=== PATIENT | male | born 1970 | race African-American/Black ===

== ENCOUNTER 2024-05-12 18:11 | Emergency (ER) | payer MEDICAID ==
[~2024-05-12] VITALS: Ht 180.3 cm; Wt 95.3 kg
[2024-05-12 18:15] VITALS: O2SAT 97
[2024-05-12] MEDS ORDERED: DOXY100T2 MT (20:01)
[2024-05-12] MEDS: CEFTRIAXONE SODIUM 500MG VIAL IM ONE (20:19)
[2024-05-12] MEDS: LIDOCAINE HCL/PF 1% 10 MG/ML 5ML VIAL INFIL ONE (20:19)
[2024-05-12 20:24] VITALS: BP 109/69; PULSE 72; RESP 16; TEMP 98.1
[2024-05-12 20:56] LABS: CLARITY URINE CLEAR (CLEAR); COLOR URINE YELLOW (YELLOW); GLUCOSE URINE NEGATIVE (NEGATIVE); KETONES URINE NEGATIVE (NEGATIVE); LEUKOCYTE ESTERASE URINE NEGATIVE (NEGATIVE); NITRITE URINE NEGATIVE (NEGATIVE); OCCULT BLOOD URINE NEGATIVE (NEGATIVE); PROTEIN URINE NEGATIVE (NEGATIVE); SPECIFIC GRAVITY URINE 1.006 (1.005-1.030); UROBILINOGEN URINE 0.2 E.U./dL (0.2-1.0)
[2024-05-15 04:10] LABS: CHLAMYDIA TRACHOMATIS NAA Negative (Negative); NEISSERIA GONORRHOEAE NAA Negative (Negative)
== END 2024-05-12 20:26 | disposition home or self-care (01) ==
LOC: ER 18:11
DX: A74.9 Chlamydial infection, unspecified (principal)
CPT/HCPCS: 99283; 86592; 87491; 87591; 81003; 36415; 96372; J0696; J3490

== ENCOUNTER 2025-05-19 01:12 | Emergency (ER) | payer SELFPAY ==
[~2025-05-19] VITALS: Ht 185.4 cm; Wt 107.0 kg
[~2025-05-19 01:12] MED LIST: DOXY100T2 MT
[2025-05-19 01:15] VITALS: O2SAT 100
[2025-05-19 01:44] LABS: BASOPHILS % 1.1 % (0.0-2.0); EOSINOPHILS % 0.2 % (0.0-5.0); HEMATOCRIT. 41.4 % (42.0-52.0); HEMOGLOBIN. 13.8 g/dL (14.0-18.0); LYMPHOCYTES % 10.2 % (20.0-50.0); MEAN PLATELET VOLUME 7.3 fl (7.4-10.4); MONOCYTES % 6.1 % (2.0-8.0); NEUTROPHILS % 82.4 % (40.0-76.0); PLATELET 244 x1000/uL (130-400); RED BLOOD CELL COUNT 4.65 mill/uL (4.7-6.1); RED CELL DISTRIBUTION WIDTH 14.2 % (11.6-14.6)
[2025-05-19] MEDS: LORAZEPAM 1MG TABLET PO ONE (01:53)
[2025-05-19 01:54] LABS: *AMPHETAMINES SCREEN URINE NEGATIVE (NEGATIVE); *BARBITURATES SCREEN URINE NEGATIVE (NEGATIVE); *BENZODIAZEPINES SCREEN URINE NEGATIVE (NEGATIVE); *COCAINE SCREEN URINE PRESUMPTIVE POSITIVE (NEGATIVE); CANNABINOID URINE SCREEN PRESUMPTIVE POSITIVE (NEGATIVE); ECSTASY MDMA SCREEN URINE NEGATIVE (NEGATIVE); METHADONE URINE SCREEN NEGATIVE (NEGATIVE); OPIATES URINE SCREEN NEGATIVE (NEGATIVE); PHENCYCLIDINE URINE SCREEN NEGATIVE (NEGATIVE)
[2025-05-19 01:59] LABS: CREATININE 1.0 mg/dL (0.6-1.3); ETHANOL BLOOD 43 mg/dL (<10); UREA NITROGEN BLOOD 11 mg/dL (9-23)
[2025-05-19 02:01] LABS: ASPARTATE AMINOTRANSFERASE 26 IU/L (<34); BILIRUBIN DIRECT 0.1 mg/dL (<=3.0); BILIRUBIN TOTAL 0.4 mg/dL (0.1-1.0); PROTEIN TOTAL 6.1 g/dL (6.0-8.3)
[2025-05-19 06:03] LABS: CLARITY URINE CLEAR (CLEAR); COLOR URINE YELLOW (YELLOW); GLUCOSE URINE NEGATIVE (NEGATIVE); KETONES URINE NEGATIVE (NEGATIVE); LEUKOCYTE ESTERASE URINE NEGATIVE (NEGATIVE); NITRITE URINE NEGATIVE (NEGATIVE); OCCULT BLOOD URINE NEGATIVE (NEGATIVE); PH URINE 5.0 (4.5-8.0); PROTEIN URINE NEGATIVE (NEGATIVE); SPECIFIC GRAVITY URINE 1.011 (1.005-1.030); UROBILINOGEN URINE 0.2 E.U./dL (0.2-1.0)
[2025-05-19] MEDS: OLANZAPINE 5MG TABLET ODT PO SCH (21:11)
[2025-05-20] MEDS: ACETAMINOPHEN 325MG TABLET PO ONE (18:24)
[2025-05-20] MEDS: LORAZEPAM 1MG TABLET PO ONE (18:24)
[2025-05-20] MEDS: LORAZEPAM 2MG/ML UD SYRINGE IM SCH (21:05)
[2025-05-20] MEDS: HALOPERIDOL LACTATE 5MG/ML VIAL IM ONE (21:06)
[2025-05-20] MEDS: DIPHENHYDRAMINE 50MG/ML VIAL IM ONE (21:06)
[2025-05-20 22:03] VITALS: BP 117/73; PULSE 70; RESP 14; TEMP 36.8; O2SAT 100
== END 2025-05-20 16:01 ==
LOC: ER 01:12
DX: R45.851 Suicidal ideations (principal); F14.90 Cocaine use, unspecified, uncomplicated; F41.9 Anxiety disorder, unspecified; F31.9 Bipolar disorder, unspecified; Z00.8 Encounter for other general examination; Z59.00 Homelessness unspecified; Z20.822 Contact with and (suspected) exposure to COVID-19
CPT/HCPCS: 80076; 80305; 80048; 81003; 80307; 80329; 80320; 85025; 36415; 99285; 87426; J1200; J1630; J2060; A4606; G0480